=== PATIENT | male | born 1955 | race Asian ===

== ENCOUNTER 2019-01-05 21:39 | Inpatient (IN) | payer OTHER ==
[~2019-01-05] VITALS: Ht 167.6 cm; Wt 70.8 kg
--- NOTE | 2019-01-05 21:47 | NUR ---
"BIB EMS C/O CHRONIC COCCYX UCLER, LLE PAIN. PER PT HE LEFT THE SNF BUT UNABLE TO RECALL THE NAME OF THE FACILITY" PT TO BED 7, PT ON MONITOR, PIV ESTABLISHED, VSS, NAD NOTED, PENDING MD SANTANA
[2019-01-05 22:42] LABS: BASOPHILS # (AUTO) 0.1 /CMM (0.0-0.2); EOSINOPHILS % (AUTO) 3.5 % (0.0-6.0); HEMATOCRIT 29 % (39-51); HEMOGLOBIN 8.8 g/dL (13.5-17.5); LYMPHOCYTES # (AUTO) 2.9 /CMM (0.8-4.8); LYMPHOCYTES % (AUTO) 26.9 % (20.0-44.0); MEAN CORPUSCULAR HGB CONC 31 g/dl (31.0-36.0); MEAN CORPUSCULAR VOLUME 59 fL (80-96); MONOCYTES # (AUTO) 0.7 /CMM (0.1-1.30); MONOCYTES % (AUTO) 6.9 % (2.0-12.0); NEUTROPHILS # (AUTO) 6.7 /CMM (1.8-8.9); NEUTROPHILS % (AUTO) 61.7 % (43.0-81.0); PLATELET COUNT (AUTO) 671 /CMM (150-450); RED BLOOD CELL COUNT(AUTO) 4.86 MIL/uL (4.5-6.0); WHITE BLOOD COUNT (AUTO) 10.8 K/uL (4.3-11.0)
[2019-01-05 23:49] LABS: ALANINE AMINOTRANSFERASE 9 U/L (12-78); ALBUMIN 2.1 g/dL (3.4-5.0); ALKALINE PHOSPHATASE 70 U/L (46-116); ASPARTATE AMINOTRANSFERASE 9 U/L (15-37); BILIRUBIN,DIRECT 0.1 mg/dL (0.0-0.2); BILIRUBIN,TOTAL 0.2 mg/dL (0.2-1.0); CALCIUM, SERUM 8.8 mg/dL (8.5-10.1); CARBON DIOXIDE 24 mmol/L (21-32); CHLORIDE 97 mmol/L (98-107); CREATININE 0.5 mg/dL (0.6-1.3); GLUCOSE 131 mg/dL (74-106); SODIUM SERUM 133 mmol/L (136-145); TOTAL PROTEIN, SERUM 8.7 g/dL (6.4-8.2); UREA NITROGEN, BLOOD 9 mg/dL (7-18)
--- NOTE | 2019-01-06 | NUR ---
PT HAS F/C IN PLACE, DRAINING CLEAR YELLOW URINE, PT REQUESTED TO HAVE BAG CHANGED.
--- NOTE | 2019-01-06 00:13 | NUR ---
URINE COLLECTED AND SENT TO LAB
[2019-01-06 00:32] LABS: APPEARANCE,URINE Cloudy (CLEAR); BILIRUBIN,URINE Negative (NEGATIVE); BLOOD, URINE Negative Ery/uL (NEGATIVE); COLOR,URINE Yellow (YELLOW); KETONES,URINE Negative (NEGATIVE); LEUKOCYTE ESTERASE ,URINE Large (NEGATIVE); NITRITE, URINE Negative (NEGATIVE); PROTEIN,URINE 100 mg/dl (NEGATIVE); UGLUCOSE Negative (NEGATIVE); UROBILINOGEN,URINE 0.2 EU/dL (0.2)
[2019-01-06 00:38] LABS: PH,URINE >9.0 (5.0-8.0)
[2019-01-06] MEDS ORDERED: IV 1/2NS 1000 ML 1,000 ML IV PRN (00:39)
--- NOTE | 2019-01-06 00:40 | NUR ---
BED ASSIGNMENT 323-2
[2019-01-06 00:45] LABS: BACTERIA,URINE Few /HPF (None Seen); RBC,URINE 0-2 /HPF (0-2); SQUAMOUS EPITHELIAL CELL,UR Few /HPF (None Seen); TRIPLE PHOSPHATE CRYSTAL,UR MANY /HPF (None Seen)
--- NOTE | 2019-01-06 00:53 | NUR ---
REPORT GIVEN TO [facility] FLOOD FOR ESTRELLITA PT WILL BE TRANSPORTED TO 3RD FLOOR
[2019-01-06] MEDS ORDERED: PIPERACILLIN /TAZOBACTAM 3.375 G VIAL IV ONE (00:54)
--- NOTE | 2019-01-06 00:54 | NUR ---
RN medsurg notes Received report from ALEENA Heath ER nurse.
[2019-01-06] MEDS ORDERED: HYDROCODONE/APAP 5/325MG 1 EACH TABLET PO PRN (01:00)
[2019-01-06] MEDS ORDERED: ZOLPIDEM TARTRATE 5 MG TABLET PO PRN (01:00)
[2019-01-06] MEDS ORDERED: MAG HYDROX/AL HYDROX/SIMETH 30 ML UDC PO PRN (01:00)
[2019-01-06] MEDS ORDERED: PIPERACILLIN /TAZOBACTAM 3.375 G in IV D5W 50 ML IV ONE (01:00)
[2019-01-06] MEDS ORDERED: MAGNESIUM HYDROXIDE 30 ML UDC PO PRN (01:00)
[2019-01-06] MEDS ORDERED: Z GUARD REMEDY 2 OZ OINT TP PRN (01:00)
[2019-01-06] MEDS ORDERED: ONDANSETRON HCL/PF 4 MG/2 ML VIAL IVP PRN (01:00)
--- NOTE | 2019-01-06 01:30 | NUR ---
RN brandi notes Received Pt from ER nurse. Pt arrived at unit at 0130 am. Pt is 63 male pt with a diagnose of Decubitus Ulcer by Dr. Horton. Pt is alert and oriented x3. Pt is very agitated verbally abusive, combative, and complaining of leaving the unit upon arrival. Pt states " I don't want anyone in my room and I want to go back to ER." Informed and educate Pt that Pt needs a treatment. Pt refused all the assessment. Pt states " You son of bitch." Pt refuses body assessment to be done, stating that he will refuse all medication. Belongings accounted and signed for by Nicole and Halle. All current needs attended to. Bed low, locked, bed alarm on, upper rails up, and call light within reach. Will continue to monitor.
--- NOTE | 2019-01-06 01:40 | NUR ---
RN medsurskyler notes Pt refused VS and body assessment. Will continue to monitor.
[2019-01-06] MEDS ORDERED: VANCOMYCIN 1.5 GM in IV D5W 500ml IV ONE (02:00)
[2019-01-06] MEDS: CEFTRIAXONE 1 G in IV D5W 50 ML IV SCH (06:00)
--- NOTE | 2019-01-06 06:44 | NUR ---
RN medsurg notes Pt is alert and oriented X2, confused, agitated, and combative. Pt is resting in bed comfortably. No SOB. No S/S of distress noted. IV sites at [facility] is clean, intact, patent and SL. Pt refused the treatment, VS, body assessment and medications. Informed and educate Pt about the benefit of treatment and taking meds as ordered. Pt keep refusing. Charge nurse ALEENA Mckeon is aware and informed. Safety precautions is maintained. Bed at low position, brakes locked, side rails upX3, call light is within reach and bed alarm on. Will endorse to morning nursse for ESTRELLITA.
--- NOTE | 2019-01-06 08:00 | NUR ---
MS RN NOTES PATIENT IN BED RESTING NO SOB OR ACUTE DISTRESS NOTED. PATIENT REFUSING ALL CARE. REFUSING VITAL SIGN TO BE CHECK DESPITE EXPLANATION OF RISKS. PATIENT AGGRESSIVE. VERBALLY ABUSIVE. MD MADE AWARE WILL CONTINUE TO MONITOR.
[2019-01-06] MEDS ORDERED: FEE PK DOSING 1 MIN EA MC ONE (08:31)
--- NOTE | 2019-01-06 11:52 | NUR ---
Social service consult requested by Dr. Horton for homelessness. Pt. is a 63 year old male who was admitted to [facility] for infected decubitus ulcer. SW met with pt. bedside along with ALEENA Leonard for translating in Kyrgyz. Pt. is alert and oriented x 3. Per ALEENA Carter and AKASH John, pt. has been verbally abusive and non-compliant with his care here at [facility]. Pt. is and has children, however he has no contact with them. Pt. stated he was going on the bus to go to a hospital and paramedics transported him here. Pt. is homeless. 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 Pt. is wheelchair bound and paraplegic. Pt. has been to several hospitals in the past 12 months. Pt. states he goes from one hospital to another. Pt. informed SW that he will leave AMA if he is not given a private room and an air mattress. SW updated ALEENA Carter and AKASH John with aforementioned information. Pt. is not [facility] appropriate due to having wounds and being paraplegic. SW is available, if needed.
[2019-01-06] MEDS: VANCOMYCIN 1 GM in IV D5W 250 ML IV SCH (14:00)
--- NOTE | 2019-01-06 14:53 | NUR ---
MS RN NOTES PATIENT AGREED TO RECEIVE IV HYDRATION. IV NOTED TO BE INFILTRATED OFFERED TO CHANGE IV SITE. PATIENT REFUSED STATING HE DOES NOT NEED ANY IV MEDICATIONS AND HE IS REFUSING. STATES TO LEAVE HIM ALONE. EMPLANED RISKS AND BENEFITS. PATIENT CONTINUES TO REFUSE.
--- NOTE | 2019-01-06 18:42 | NUR ---
MS RN NOTES PATIENT IN BED RESTING NO SOB OR ACUTE DISTRESS NOTED. PATIENT ALERT, ORIENTED X3 DENIES ANY PAIR OR DISCOMFORT. PATIENT REFUSED ALL CARE DURING SHIFT. HE ALLOWED FOR FLUIDS TO BE CONNECTED BUT WHEN PERIPHERAL WAS FOUND INFILTRATED REFUSED NEW IV TO BE INSERTED. PATIENT REFUSED TURNING AND REPOSITIONING. PATIENT ALSO REFUSED WOUND CARE. DR. SCHMIDT MADE AWARE STATES HE IS AWARE, TO CONTINUE TO TRY. WILL ENDORSE CARE TO PM SHIFT.
--- NOTE | 2019-01-06 19:15 | NUR ---
RN brandi opening notes Received Pt awake and in bed. Pt is awake, verbally abusive, aggresive and non compliant with POC. No S/S of distress noted. Pt refused assessment, repositioning and care. Explained and Informed benefits and risks. Pt keep refusing. Safety precautions is maintained. Bed at low position, brakes locked, side rails upX3 and bed alarm is on. Will continue to monitor.
--- NOTE | 2019-01-06 20:00 | NUR ---
ALEENA paz notes Pt refused VS. Informed and explained the risks and benefits. Pt keep refusing. Will continue to monitor.
--- NOTE | 2019-01-06 23:12 | NUR ---
RN medsurg notes Informed Dr. Horton about Pt is positive for MRSA in right nares. MD ordered MRSA contact isolation and bactroban. Order carried out.
--- NOTE | 2019-01-07 | NUR ---
RN medsurg notes Pt is verbally abusive, and non compliant with care. Pt just had a large bowel movement. Informed Pt that Pt need to get clean and Pt's agree. Informed the charge nurse ALEENA Pritchard about Pt's wound. Charge nurse instructed to cleaned the wound with NS, pat dry, add moistened gauze and covered with abdominal pad. Informed Pt that Pt needs wound care treatment to get better. Pt keep refusing with POC. Charge nurse aware and informed.
--- NOTE | 2019-01-07 00:01 | NUR ---
RN medsurg notes Pt refused to have picture of the wound taken. Will continue to monitor.
[2019-01-07] MEDS: VANCOMYCIN 1 GM in IV D5W 250 ML IV SCH ×2 (02:00→14:00)
--- NOTE | 2019-01-07 02:00 | NUR ---
ALEENA medsurskyler notes Pt refused Vancomycin antibiotics. Offered multiple times. Informed and educate Pt about risk and benefits. Pt keep refusing. Will continue to monitor.
--- NOTE | 2019-01-07 05:42 | NUR ---
ALEENA paz notes Pt refused to have blood drawn by optical laboratory technician. Pt states " I don't want it. Leave me alone. I want to sleep." Informed and educate Pt about risks and benefits. Pt keep refusing. Will continue to monitor.
[2019-01-07] MEDS: CEFTRIAXONE 1 G in IV D5W 50 ML IV SCH (06:00)
--- NOTE | 2019-01-07 06:03 | NUR ---
RN medsurg notes Pt refused Rocephin antibiotic. Made aware risk and benefits. Pt keep refusing. Will continue to monitor.
--- NOTE | 2019-01-07 06:38 | NUR ---
RN medsurg closing notes Pt is alert and oriented x2, confused, and verbally abusive. Pt is resting in bed comfortably. No S/S of distress noted. Pt refused all the care during shift. Pt refused meds. Pt refused VS. Pt refused to have new IV inserted and Pt refused repositioning and turning. Pt refused to have IV fluids. Only allowed to cleaned Pt's wound in the sacrum area but not allowed to have picture taken. Made aware risks and benefits. Charge nurse ALEENA Pritchard is aware and informed. Safety precautions is maintained. Bed at low position, brakes locked, side rails upX3, bed at alarm on and call light is within reach. Will endorse to morning nurse for ESTRELLITA.
--- NOTE | 2019-01-07 06:58 | NUR ---
RN medsurg notes Received phone call from ALEENA Kinghome care aide nurse regarding Pt's wound. Pt's has a decubitus wound. Was able to clean the wound because Pt had a large bowel movement. Unable to measure wound due to Pt's refusing several times and not allowing to have pictures taken. The wound appears to be very large, deep, red and able to see bones. There is no drainage. While cleaning the wound Pt states "keep pushing. I don't feel it." Charge nurse ALEENA Pritchard is aware and looked at the wound. Will endorse to morning nurse ALEENA Mclaughlin.
[2019-01-07] MEDS: MUPIROCIN OINT 2% 22 GM TUBE SCH ×2 (09:00→20:58)
--- NOTE | 2019-01-07 09:36 | NUR ---
WOUND CARE CONSULT: PT PRESENTS WITH MULTIPLE WOUNDS PRESENT ON ADMISSION INCLUDING PENIS WOUND, BILATERAL BUTTOCK ULCERS AND HUGE SACRAL ULCER. DIFFUCULT ASSESSMENT DUE TO PT ANXIOUS, ANGRY AND YELLING. RECOMMEND SURGICAL CONSULT. DR GERMAIN AWARE OF CONSULT REQUEST. RASH NOTED TO PERINEUM, PRESENT ON ADMISSION. FIRST STEP LOW AIRLOSS MATTRESS ORDERED. WILL SEE PRN. DEFER TO SURGICAL TEAM FOR WOUND TREATMENT PLAN. MD IN AGREEMENT WITH PLAN OF CARE. Addendum: 01/07/19 at 0942 by UZAIR NUNEZ WNDNU Amended: Links added.
[2019-01-07] MEDS: DAKINS QUARTER STRENGTH (0.125%) 480 ML BOTTLE TOP SCH (10:00)
--- NOTE | 2019-01-07 10:30 | NUR ---
M/S RN NOTES PATIENT SEEN BY UZAIR FOR WOUND CONSULT, PATIENT VERY ANXIOUS AND NON COMPLIANT IN THE BEGINNING BUT MANAGED TO FOLLOW ORDERS. PATIENT REFUSED FOR WOUND TX ORDERED AND PATIENT WOULD LIKE FOR WOUND TX TO BE DONE LATER.
--- NOTE | 2019-01-07 12:19 | NUR ---
M/S RN NOTES EXPLAINED TO PATIENT THAT HE HAS A DOSE OF VANCOMYCIN IV DUE AT 1400. PATIENT INSISTED THAT HE IS ALLERGIC TO VANCOMYCIN AND DOES NOT WANT TO RECEIVE IT. HE SAID THAT HE SWELLS UP AND TURNS RED. MADE DR. SCHMIDT AWARE OF THE ALLERGY AND TOLD HIM THAT THE PATIENT HAS NOT TAKEN ONE DOSE OF VANCOMYCIN BECAUSE PATIENT HAS BEEN REFUSING.
--- NOTE | 2019-01-07 12:47 | NUR ---
M/S RN NOTES PATIENT SEEN BY REBA BUT BEEN REFUSING TO BE ASSESSED AND DOES NOT WANT ANY WOUND TX TO BE DONE. PHOTOS WERE ALSO REFUSED. EDUCATED PATIENT THE RISKS AND BENEFITS BUT STILL STRONGLY REFUSED.
--- NOTE | 2019-01-07 14:16 | NUR ---
M/S RN NOTES DR. SCHMIDT AWARE OF PATIENT REFUSING VANCOMYCIN IV ALSO AWARE THAT PATIENT STATED THAT HE IS ALLERGIC TO VANCOMYCIN. PER MD HOLD ABX.
--- NOTE | 2019-01-07 14:50 | NUR ---
SW filed APS report for self-neglect. Pt. 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 APS intake ID #[id number]. SW also requested AKASH Roque to request a psychiatric consult for competency since pt. is known to leave AMA from previous hospitals and has threatened to leave AMA from [facility] as well.
--- NOTE | 2019-01-07 16:14 | NUR ---
M/S RN NOTES PATIENTS REFUSING XOCHITL MATTRESS TO BE PLACED, EXPLAINED TO PATIENT THE BENEFITS OF THE MATTRESS FOR HIS MULTIPLE WOUNDS BUT PATIENT STILL REFUSES. PATIENT STATED "IT'S THE WRONG MATTRESS, IT SHOULD BE BIGGER" EXPLAINED TO PATIENT THAT IT INFLATES BUT STILL DOESN'T WANT IT.
[2019-01-07] MEDS: CLOTRIMAZOLE 1% 15 GM TUBE TP SCH (17:00)
[2019-01-07] MEDS: LACTOBACILLUS RHAMNOSUS GG 1 EACH CAP.SPRINK PO SCH (17:00)
--- NOTE | 2019-01-07 17:35 | NUR ---
M/S RN NOTES PATIENT REFUSING TREATMENTS. AWARE. PER MD HOLD VANCOMYCIN IV.
--- NOTE | 2019-01-07 18:45 | NUR ---
M/S RN NOTES PATIENT AWAKE, LYING IN BED. NO RESPIRATORY DISTRESS. PATIENT STATED PAIN TOLERABLE IN INACTIVITY. PATIENT'S NEEDS ATTENDED. BED ON LOWEST LOCKED POSITION, CALL LIGHT WITHIN REACH. WILL ENDORSE TO ONCOMING NURSE.
--- NOTE | 2019-01-07 19:15 | NUR ---
RN NOTES: RECEIVED LYING COMFORTABLY IN BED, ON ROOM AIR, A/O1-2,LITHUANIAN,ABLE TO COMMUNICATE IN [place] WELL, HE IS ASKING FOR LITHUANIAN FOOD, HE HAS SOME FOOD ON THE BED SIDE, WILL HELP HIM EAT LATER. ORIENTED TO UNIT AND STAFF,PER ENDORSEMENT HE REFUSE FOR HIS MEDICATION, HIS VANCO WAS ON HOLD TFO BY , FALL,SAFETY AND ASPIRATION PRECAUTION OBSERVED, BED LOW AND LOCKED, CALL LIGHT WITHIN EASY REACH.NO IV LINE HE REFUSE TO BE INSERTED IN THE MORNING, HE ALSO REFUSE FOR XOCHITL MATRESS TO BE PLACE IN HIS BED, WILL TRY LATER. Addendum: 01/08/19 at 0438 by JOHN CLARK RN ADDED NOTES: EXPLAINED TO PATIENT THAT WE NEED TO RE-INSERT HIS IV CANNULA,HE HAS IV/ATB, HE STRONGLY REFUSED, WILL OFFER/TRY AGAIN LATER.
[2019-01-07 20:00] VITALS: BP 90/60
--- NOTE | 2019-01-07 20:13 | NUR ---
RN NOTES: HE WAS EATING WITH THE HELP OF HIGHWAY TRAFFIC CONTROL TECHNICIAN, GOOD APPETITE, EXPLAINED TO HIM HE WILL BE STARTED ON ZYVOX PER [place] ITS WILL BE A REPLACEMENT FOR HIS VANCO IV PER PHARMACY(JESSICA), HE AGREED.
[2019-01-07] MEDS: LINEZOLID 600 MG TABLET PO SCH (20:58)
--- NOTE | 2019-01-08 03:31 | NUR ---
RN NOTES: CALLS AND NEEDS ATTENDED, AT AROUND 0130 HE ASK AGAIN TO BE FEED, COORDINATOR OF GENETIC SERVICES GAVE HIM FOOD, AFTER THAT HE FALL ASLEEP, FALL,SAFETY,ASPIRATION PRECAUTION OBSERVED, CALL LIGHT KEPT WITHIN EASY REACH.
--- NOTE | 2019-01-08 05:29 | NUR ---
RN NOTES: REFUSED TO BE AWAKEN FOR MORNING CARE, HE REFUSE DRESSING, HE REFUSE TO CHANGE HIS BRIEF, HE REFUSE ALSO FOR IV CANNULATION AND HE REFUSE FOR ROCEPHIN DOSE AT 0600. HE GO BACK TO SLEEP.
[2019-01-08] MEDS: CEFTRIAXONE 1 G in IV D5W 50 ML IV SCH (05:32)
--- NOTE | 2019-01-08 07:20 | NUR ---
MS RN OPENING NOTES RECEIVED PT IN BED, AWAKE, A/O X2-3. TOLERATING RA, WITH NO ACUTE RESPIRATORY DISTRESS NOTED. PT DENIES ANY PAIN OR DISCOMFORT AT THIS TIME. ALSO DENIES CONCERNS OR QUESTIONS AT THIS MOMENT. NO PIV NOTED, PT REFUSED AND DON'T WANT ANY POKING ANYMORE TO NOTIFY MD/GA. PT KEPT COMFORTABLE. PT'S BED IN LOWEST, LOCKED POSITION WITH SRX3. CALL LIGHT KEPT WITHIN REACH. WILL CONTINUE PLAN OF CARE.
[2019-01-08] MEDS: LACTOBACILLUS RHAMNOSUS GG 1 EACH CAP.SPRINK PO SCH ×2 (09:04→17:41)
[2019-01-08] MEDS: LINEZOLID 600 MG TABLET PO SCH ×2 (09:04→21:13)
[2019-01-08] MEDS: CLOTRIMAZOLE 1% 15 GM TUBE TP SCH ×2 (09:05→17:42)
[2019-01-08] MEDS: DAKINS QUARTER STRENGTH (0.125%) 480 ML BOTTLE TOP SCH (09:05)
[2019-01-08] MEDS: MUPIROCIN OINT 2% 22 GM TUBE SCH ×2 (09:06→21:13)
--- NOTE | 2019-01-08 09:15 | NUR ---
MS RN NOTES PT WAS SEEN AND EVALUATED BY DR. SCHMIDT THIS MORNING WITHOUT NEW ORDERS. MD AWARE PT REFUSE TO HAVE IV LINE IN PLACE.
[2019-01-08] MEDS: ACETAMINOPHEN 325 MG TABLET PO PRN (10:14)
--- NOTE | 2019-01-08 10:30 | NUR ---
MS RN NOTES PT ALLOWED RN TO DO WOUND TREATMENT FOR THE SACRUM AND PERIAREA. WILL CONTINUE TO MONITOR.
--- NOTE | 2019-01-08 10:35 | NUR ---
MS RN NOTES PT REFUSED XOCHITL MATTRESS. RISK AND BENEFITS MADE AWARE, INSISTED TO REFUSE.
[2019-01-08 14:13] LABS: BASOPHILS % (AUTO) 0.5 % (0.0-2.0); EOSINOPHILS % (AUTO) 2.5 % (0.0-6.0); HEMATOCRIT 28 % (39-51); HEMOGLOBIN 8.7 g/dL (13.5-17.5); LYMPHOCYTES # (AUTO) 2.9 /CMM (0.8-4.8); LYMPHOCYTES % (AUTO) 27.5 % (20.0-44.0); MEAN CORPUSCULAR HGB CONC 31 g/dl (31.0-36.0); MEAN CORPUSCULAR VOLUME 58 fL (80-96); MONOCYTES # (AUTO) 0.8 /CMM (0.1-1.30); MONOCYTES % (AUTO) 7.9 % (2.0-12.0); NEUTROPHILS # (AUTO) 6.5 /CMM (1.8-8.9); NEUTROPHILS % (AUTO) 61.6 % (43.0-81.0); PLATELET COUNT (AUTO) 554 /CMM (150-450); WHITE BLOOD COUNT (AUTO) 10.5 K/uL (4.3-11.0)
[2019-01-08 14:34] LABS: BILIRUBIN,TOTAL 0.2 mg/dL (0.2-1.0); CALCIUM, SERUM 8.4 mg/dL (8.5-10.1); CREATININE 0.6 mg/dL (0.6-1.3); MAGNESIUM 1.9 mg/dL (1.8-2.4); PHOSPHORUS 3.4 mg/dL (2.5-4.9); POTASSIUM 3.6 mmol/L (3.5-5.1); TOTAL PROTEIN, SERUM 8.3 g/dL (6.4-8.2)
--- NOTE | 2019-01-08 18:36 | NUR ---
MS RN CLOSING NOTES PT IN BED, AWAKE, A/O X2-3. TOLERATING RA, WITH NO ACUTE RESPIRATORY DISTRESS NOTED. PT DENIES ANY PAIN OR DISCOMFORT AT THIS TIME. NO PIV NOTED, MD/GA AWARE. FC IN PLACE WITH CLEAR YELLOW URINE, 1200ML OUTPUT. ALL NEEDS AND CARE ATTENDED. PT KEPT COMFORTABLE. PT'S BED IN LOWEST, LOCKED POSITION WITH SRX3. CALL LIGHT KEPT WITHIN REACH. WILL ENDORSE TO INCOMING NIGHT NURSE FOR ESTRELLITA.
--- NOTE | 2019-01-08 20:00 | NUR ---
MS RN NOTES PT REFUSED TO HAVE VS TAKEN. EXPLAINED TO PT IMPORTANCE OF VS IN HIS POC BUT PT STILL REFUSED. WILL CONTINUE TO MONITOR.
[2019-01-09] MEDS: CEFTRIAXONE 1 G in IV D5W 50 ML IV SCH (06:00)
--- NOTE | 2019-01-09 06:24 | NUR ---
MS RN NOTES PT REFUSED TO HAVE BLOOD DRAWN. EXPLAINED TO PT IMPORTANCE OF BLOOD DRAW IN HER POC BUT PT STILL REFUSED. WILL CONTINUE TO MONITOR.
--- NOTE | 2019-01-09 06:45 | NUR ---
MS RN NOTES AWAKE & RESPONSIVE. NOT IN ANY DISTRESS. NO SOB NOTED. DENIES ANY PAIN OR DISCOMFORT AT THIS TIME. AM CARE DONE. MONITORED ACCORDINGLY. CALL LIGHT WITHIN REACH. BED IN LOWEST POSITION. SR UP X 3 WITH BED ALARM ON FOR SAFETY. WILL ENDORSE TO NEXT SHIFT.
--- NOTE | 2019-01-09 07:26 | NUR ---
MS RN OPENING NOTES RECEIVED PATIENT IN BED, ALERT AND AWAKE. NO SOB OBSERVED. DENIES ANY C/O PAIN NOR DISCOMFORT AT THIS TIME. PATIENT REFUSED V/S, REFUSED TURNING AND REPOSITIONING, BED FOR WOUND MANAGEMENT AND IV ACCESS DESPITE OF EDUCATION AND EXPLANATIONS OF RISKS AND BENEFITS, PATIENT STRONGLY REFUSED. FREQUENT VISUAL CHECK DONE. HOB ELEVATED. F/C INTACT VIA BEDSIDE DRAINING YELLOW COLORED URINE. CALL LIGHT WITHIN REACH. ABLE TO VERBALIZE NEEDS.
[2019-01-09] MEDS: CLOTRIMAZOLE 1% 15 GM TUBE TP SCH ×2 (09:59→16:20)
[2019-01-09] MEDS: DAKINS QUARTER STRENGTH (0.125%) 480 ML BOTTLE TOP SCH (09:59)
[2019-01-09] MEDS: MUPIROCIN OINT 2% 22 GM TUBE SCH ×2 (10:00→20:21)
[2019-01-09] MEDS: LINEZOLID 600 MG TABLET PO SCH ×2 (10:00→20:22)
[2019-01-09] MEDS: LACTOBACILLUS RHAMNOSUS GG 1 EACH CAP.SPRINK PO SCH ×2 (10:00→16:13)
--- NOTE | 2019-01-09 11:00 | NUR ---
MS RN NOTES PATIENT REFUSED SECOND ATTEMPT FOR BLOOD DRAW DESPITE OF EXPLANATION OF RISKS AND BENEFITS.
[2019-01-09] MEDS: ACETAMINOPHEN 325 MG TABLET PO PRN ×2 (15:36→22:53)
[2019-01-09 16:00] VITALS: BP 118/82
--- NOTE | 2019-01-09 16:02 | NUR ---
MS RN NOTES PATIENT REFUSED 3RD BLOOD DRAW DESPITE OF EDUCATION AND EXPLANATIONS OF RISKS AND BENEFITS. PATIENT STRONGLY REFUSED.
--- NOTE | 2019-01-09 18:33 | NUR ---
MS RN CLOSING NOTES PATIENT RESTING COMFORTABLY IN BED. ALERT AND ORIENTED X2. NO SOB OBSERVED. DENIES ANY C/O PAIN NOR DISCOMFORT AT THIS TIME. WOUND CARE DONE ALEX WELL. PATIENT REFUSED TO BE REPOSITIONED AFTER WOUND CARE AND PREFERS TO BE SUPINE. PATIENT REFUSED IV ACCESS AND IVF, DESPITE OF EDUCATION AND EXPLANATIONS OF RISKS AND BENEFITS, PATIENT STRONGLY REFUSED. PATIENT REQUIRES EXTENSIVE ASSISTANCE WITH ADL'S, NON AMBULATORY. FREQUENT VISUAL CHECK DONE. HOB ELEVATED. F/C INTACT VIA BEDSIDE DRAINING YELLOW COLORED URINE. CALL LIGHT WITHIN REACH. ABLE TO VERBALIZE NEEDS.
--- NOTE | 2019-01-09 19:20 | NUR ---
MS RN OPENING NOTES Received patient A/O x2, awake on high Dennis's position on bed. No IV access present - patient has been refusing. No complaints of pain made at this time. Patient refused to lower his bed and to keep the bedside table closer to his bed. With FC indwelling well with clear yellow urine output noted. Kept on bed comfortable. Call light within easy reach. Will continue to monitor accordingly.
--- NOTE | 2019-01-09 20:00 | NUR ---
MS RN NOTES Patient refused V/S check at this time. On RA, no s/sx of SOB/respiratory distress noted.
--- NOTE | 2019-01-09 22:00 | NUR ---
MS RN NOTES Patient refused wound treatment at this time. Education provided on wound treatment, patient refused.
--- NOTE | 2019-01-09 23:03 | NUR ---
MS RN NOTES Patient asked that he is ready to take his antibiotic at this time with tylenol. Administered as ordered.
--- NOTE | 2019-01-10 00:30 | NUR ---
MS RN NOTES Patient refused to be cleaned. Patient is verbally abusive to the staff. Remained non compliant, throw away the medication.
[2019-01-10] MEDS: CEFTRIAXONE 1 G in IV D5W 50 ML IV SCH (05:18)
--- NOTE | 2019-01-10 06:40 | NUR ---
MS RN CLOSING NOTES Patient asleep on bed, on RA, no SOB/respiratory distress noted. Patient complied cleaning with the CN. Kept on bed clean, dry and comfortable. Call light within easy reach. Endorsed to the next shift.
--- NOTE | 2019-01-10 07:30 | NUR ---
m/s ornamental brick installer: initial assessment received pt in bed, easily irritable and gets upset easily. pt refused vital signs and assessment. reality orientation provided prn. will continue to monitor.
--- NOTE | 2019-01-10 08:30 | NUR ---
m/s legal cashier: notes pt still refused to have vital sign taken and still refuses am assessment. breakfast and am meds offered, but pt refused, stated, "maybe later." instructed to call for assistance.
[2019-01-10] MEDS: CLOTRIMAZOLE 1% 15 GM TUBE TP SCH ×2 (09:00→17:00)
[2019-01-10] MEDS: DAKINS QUARTER STRENGTH (0.125%) 480 ML BOTTLE TOP SCH (09:00)
[2019-01-10] MEDS: MUPIROCIN OINT 2% 22 GM TUBE SCH ×2 (09:00→21:08)
[2019-01-10] MEDS: LINEZOLID 600 MG TABLET PO SCH ×2 (09:16→20:48)
[2019-01-10] MEDS: LACTOBACILLUS RHAMNOSUS GG 1 EACH CAP.SPRINK PO SCH ×2 (09:16→17:00)
[2019-01-10] MEDS: ACETAMINOPHEN 325 MG TABLET PO PRN (09:16)
--- NOTE | 2019-01-10 10:00 | NUR ---
m/s assistant elementary teacher: notes pt still refuses kci mattress and still wants his bed up. safety teaching provided, but pt refuses and started cursing at staff when bed was put down for safety.
--- NOTE | 2019-01-10 10:22 | NUR ---
m/s registered safety engineer: md visit seen by dr. alfonso with verbal order to brian'cassie powell ivpb due to refusal of iv medication and iv insertion. order carried out and acknowledged. md aware that pt still refusing labs, vital signs, am care and tx; also per md pt has been refusing debridement on his sacral wound.
--- NOTE | 2019-01-10 12:00 | NUR ---
m/s title checker: notes lunch served, but pt refused to eat at this time. pt asked for wound care.
--- NOTE | 2019-01-10 14:30 | NUR ---
m/s clement: notes pt asked to have his dressing change and leida (martha) here to assess wound. pt is dictating on what to do with his wound and refusing his wound assessed by leida. pt yelling and screaming by cursing out at staff. noted stool coming out of the wound, kept clean and dry. able to take photos on one side only. pt continued to cursed at leida (p.a.) and let primary nurse continued to do his wound tx. spent half an hour in room, just to calm pt and encouraged to verbalized feelings. emotional support rendered. will continue to monitor. Addendum: 01/10/19 at 1504 by JUAN PABLO HERNANDEZ LVN above time is wrong; correct time would be at 1200.
--- NOTE | 2019-01-10 14:50 | NUR ---
m/s laboratory asst: notes in bed with eyes close. no s/s of discomfort. call light within reach. will monitor.
--- NOTE | 2019-01-10 15:45 | NUR ---
m/s orthopedic tech: notes pt awaken and request to heat his lunch, informed pt that we cannot bring his lunch out due to isolation, but yelled at me and started cursing. offered sandwich, but pt refused. will continue to monitor.
--- NOTE | 2019-01-10 16:30 | NUR ---
m/s computer scientist: notes pt still refuses kci mattress and still refuses his bed to be lowered for safety despite teaching and education provided on safety. pt continued to be verbally abusive to staff and dictating on every care that was provided to him. will continue to monitor.
--- NOTE | 2019-01-10 17:40 | NUR ---
m/s engineering recruiter: notes dr. alfonso notified and discussed with him re: stool noted coming out from the wound. pt still non-compliant with wound debridement and assessment from the plastic surgeon group. per md someone already told him about this and pt remains non-compliant with assessment as stated. will continue to monitor.
--- NOTE | 2019-01-10 18:30 | NUR ---
m/s shoder filler: notes in bed with eyes close. needs attended. in no apparent distress noted. call light within reach. will continue to monitor.
--- NOTE | 2019-01-10 19:00 | NUR ---
m/s organ assembler: notes report given to sandy (rn) for continuity of care.
--- NOTE | 2019-01-10 19:30 | NUR ---
MS RN OPENING NOTES RECEIVED PATIENT FROM MORNING SHIFT, ALERT AND ORIENTED X 4. VERBALLY RESPONSIVE AND ABLE TO FOLLOW DIRECTIONS. BREATHING REGULAR AND UNLABORED ON ROOM AIR. NO IV LINE NOTED. REFUSED SKIN ASSESSMENT, RISK AND BENEFITS EXPLAINED. COMPLAINED OF 5/10 SACROCOCCYX PAIN THAT AGGRAVATES WHEN MOVING, OFFERED PAIN MEDICATION BUT REFUSED SAID JUST HELP HIM OUT TO EAT. ASSISTED ON FEEDING. SO CATH INTACT AND PATENT, DRAINING CLEAR YELLOW URINE WITH MODERATE AMOUNT ON URINARY BAG. WILL CONTINUE TO MONITOR.
[2019-01-10 21:12] VITALS: BP 116/67
--- NOTE | 2019-01-10 22:57 | NUR ---
MS RN NOTES PATIENT REFUSED BLOOD DRAW FOR LAB, RISK AND BENEFITS EXPLAINED. WILL CONTINUE TO MONITOR.
[2019-01-11] MEDS: ACETAMINOPHEN 325 MG TABLET PO PRN ×2 (04:39→17:26)
--- NOTE | 2019-01-11 05:44 | NUR ---
MS RN NOTES REFUSED TO BE CHANGED, REPOSITIONED AND WOUND TREATMENTS. ALSO REFUSED AM LABS. RISK AND BENEFITS EXPLAINED. WILL CONTINUE TO MONITOR.
--- NOTE | 2019-01-11 06:40 | NUR ---
MS RN CLOSING NOTES PATIENT IN BED ALERT AND ORIENTED X 4. VERBALLY RESPONSIVE. BREATHING REGULAR AND UNLABORED ON ROOM AIR. NO IV LINE NOTED. REFUSED WOUND TREATMENT, AM LABS, CHANGE AND REPOSITIONING, RISK AND BENEFITS EXPLAINED. SO CATH INTACT AND PATENT, DRAINING CLEAR YELLOW URINE WITH MODERATE AMOUNT ON URINARY BAG. BED LOW AND LOCKED ON SEMI FOWLERS POSITION. WILL ENDORSE TO MORNING SHIFT FOR ESTRELLITA.
--- NOTE | 2019-01-11 08:00 | NUR ---
m/s scenic artist: initial assessment received pt in bed awake, a/ox3, easily irritable, manipulative, and verbally abusive. pt refused vital signs. pt c/o that nobody change his wound dressing last night. pt refused all care last night. pt also very argumentative with staff. emotional support rendered. will continue to monitor.
[2019-01-11] MEDS: DAKINS QUARTER STRENGTH (0.125%) 480 ML BOTTLE TOP SCH (09:00)
[2019-01-11] MEDS: CLOTRIMAZOLE 1% 15 GM TUBE TP SCH ×2 (09:00→17:00)
[2019-01-11] MEDS: MUPIROCIN OINT 2% 22 GM TUBE SCH ×2 (09:00→20:55)
--- NOTE | 2019-01-11 10:00 | NUR ---
m/s industrial arts teacher: notes pt refused to be turned and repositioned, just wants his head up and bed all the way up. pt refusing to listen to staff when safety teaching provided. pt wants his way only and refused all teaching from staff. instructed to call for assistance. will monitor.
[2019-01-11] MEDS: LINEZOLID 600 MG TABLET PO SCH ×2 (10:05→20:54)
[2019-01-11] MEDS: LACTOBACILLUS RHAMNOSUS GG 1 EACH CAP.SPRINK PO SCH ×2 (10:05→17:00)
--- NOTE | 2019-01-11 12:00 | NUR ---
m/s roof promenade tile setter: notes pt started throwing temper tantrums to sane rn ranging from screaming, yelling, and cursing. pt is hard to please. pt remains negative toward staff despite emotional support provided. pt still non-compliant with bed being low, still wants it up. instructed to call for assistance. will continue to monitor.
--- NOTE | 2019-01-11 14:00 | NUR ---
m/s truck loader: notes pt refusing help with assigned machine sewer and wants primary to assist him, pt is verbally abusive to assigned machine sewer. assisted with another machine sewer, but pt still verbally abusive. will continue to monitor. cn aware.
--- NOTE | 2019-01-11 15:45 | NUR ---
m/s substation inspector: notes started at 1445 in room doing his wound care. pt dictating on how to do his wound step by step. pt gets easily irritated when needs not met. assisted by assistant surveyor and pt continued to dictate on wound tx. pt won't us allow to do his tx order instead wants his way. in an hour spent in room. shivam mortensen (hospitalist) and leida (plastic surgeon, p.a.) spoke to pt re: wound debridement, but pt refused to listen and throw them out of the room. pt very rude and abusive to staff. all needs attended. call light within reach. instructed to call for assistance.
--- NOTE | 2019-01-11 18:30 | NUR ---
m/s housing inspector: notes pt continued to verbally abusive to staff when pt needed help with his meal. pt refused help with assigned gang drill operator. another staff assisted pt with his meal. needs attended. instructed to call for assistance. will continue to monitor.
--- NOTE | 2019-01-11 19:00 | NUR ---
MS RN NOTE RECEIVED PT IN STABLE CONDITION, A/O X4, CURRENTLY IN BED WATCHING TV. NO SIGNS OF SOB OR DISTRESS, NO C/O PAIN. PT CURRENTLY HAS NO IV, MD AWARE. SO IN PLACE WITH ADEQUATE URINE DRAINING. ALL CURRENT NEEDS ATTENDED TO. BED LOW, LOCKED, UPPER RAILS UP, ISOLATION PRECAUTIONS IN PLACE, AND CALL LIGHT WITHIN REACH. WILL CONT. TO MONITOR.
--- NOTE | 2019-01-11 19:05 | NUR ---
m/s human resources representative: notes report given to melissa (rn) for continuity of care.
[2019-01-11 20:00] VITALS: BP 109/70
--- NOTE | 2019-01-11 23:00 | NUR ---
MS RN NOTE PT REFUSED PM BLOOD DRAW.
[2019-01-12 04:08] VITALS: BP 109/70
--- NOTE | 2019-01-12 05:30 | NUR ---
MS RN NOTE PT REMAINS IN STABLE CONDITION, A/O X4, CURRENTLY IN BED, RESTING. NO SIGNS OF SOB OR DISTRESS, NO C/O PAIN. PT CURRENTLY HAS NO IV, MD AWARE. SO IN PLACE WITH ADEQUATE URINE DRAINING. ALL CURRENT NEEDS ATTENDED TO. BED LOW, LOCKED, UPPER RAILS UP, ISOLATION PRECAUTIONS IN PLACE, AND CALL LIGHT WITHIN REACH. WILL CONT. TO MONITOR AND ENDORSE TO NEXT SHIFT FOR ESTRELLITA.
--- NOTE | 2019-01-12 07:49 | NUR ---
RN MS OPENING NOTES Patient received on room air, no sob noted, denies pain at this time, and is a/o x3. Jackson remains in place and is draining, patient refuses IV and labs this am. Bed at the lowest setting, call light within reach, side rails up x2.
[2019-01-12] MEDS: LINEZOLID 600 MG TABLET PO SCH ×2 (09:49→20:06)
[2019-01-12] MEDS: LACTOBACILLUS RHAMNOSUS GG 1 EACH CAP.SPRINK PO SCH ×2 (09:49→16:24)
[2019-01-12] MEDS: DAKINS QUARTER STRENGTH (0.125%) 480 ML BOTTLE TOP SCH (09:50)
[2019-01-12] MEDS: CLOTRIMAZOLE 1% 15 GM TUBE TP SCH ×2 (09:50→16:25)
--- NOTE | 2019-01-12 14:37 | NUR ---
RN NOTES Patient refused wound debridement with leida at this time. Patient requesting for a medical doctor to do the procedure. Patient did sign the consent earlier with Horacio from [facility] translating.
--- NOTE | 2019-01-12 18:48 | NUR ---
RN MS CLOSING NOTES Patient remains on room air, no sob noted, patient denies pain at this time, a/o x3. Patient refuses IV line, wound debridement, and wound dressing change today. Jackson remains patent at this time and is draining 1600. Psych consult pending at this time. Patient requested the bed to be elevated a little bit, explained to him the safety precautions and the benefits of keeping the bed at the lowest as safest, he still persists to keep it a little bit higher. call light within reach, side rails up x2. Will give report to NOC RN for ESTRELLITA bedside.
--- NOTE | 2019-01-12 19:10 | NUR ---
MS RN NOTE RECEIVED PT IN STABLE CONDITION A/O X3. CURRENTLY IN BED, WATCHING TV. NO SIGNS OF SOB OR DISTRESS, NO C/O PAIN. PT NOTED WITHOUT IV ACCESS, MD AWARE. SO PATENT AND IN PLACE WITH ADEQUATE URINE DRAINING. ALL CURRENT NEEDS ATTENDED TO. BED LOW, LOCKED, CALL LIGHT WITHIN REACH. WILL CONT. TO MONITOR.
--- NOTE | 2019-01-12 20:27 | NUR ---
MS RN NOTE PT REFUSING 2000 VITALS. WILL CONTINUE TO MONITOR.
[2019-01-13] MEDS: ACETAMINOPHEN 325 MG TABLET PO PRN (04:17)
--- NOTE | 2019-01-13 06:37 | NUR ---
MS RN NOTE PT REMAINS IN STABLE CONDITION A/O X3. CURRENTLY IN BED, RESTING. NO SIGNS OF SOB OR DISTRESS, NO C/O PAIN. PT NOTED WITHOUT IV ACCESS, MD AWARE. SO PATENT AND IN PLACE WITH 1750 ML OUTPUT. WOUND DRESSING CHANGED ORDERED. ALL CURRENT NEEDS ATTENDED TO. BED LOW, LOCKED, CALL LIGHT WITHIN REACH. WILL CONT. TO MONITOR AND ENDORSE TO NEXT SHIFT FOR ESTRELLITA.
--- NOTE | 2019-01-13 07:35 | NUR ---
MS RN OPENING NOTES RECEIVED PT AWAKE IN BED IN NO ACUTE SIGNS OF DISTRESS. A/O X3. VERBALLY RESPONSIVE, DENIES PAIN OR ANY DISCOMFORTS AT THIS TIME. ON ROOM AIR, BREATHING EVEN AND UNLABORED. REPORTED THAT PT REFUSED IV ACCESS AND MD IS AWARE. SO CATHETER IN PLACE AND ACTIVELY DRAINING CLEAR YELLOW URINE OUTPUT. SAFETY MEASURES IN PLACE. BED IN LOW LOCKED WITH UPPER RAILS UP. CALL LIGHT WITHIN REACH. WILL CONTINUE TO MONITOR ACCORDINGLY.
[2019-01-13] MEDS: CLOTRIMAZOLE 1% 15 GM TUBE TP SCH ×2 (09:00→16:42)
[2019-01-13] MEDS: LACTOBACILLUS RHAMNOSUS GG 1 EACH CAP.SPRINK PO SCH ×2 (09:00→16:42)
[2019-01-13] MEDS: DAKINS QUARTER STRENGTH (0.125%) 480 ML BOTTLE TOP SCH (09:00)
[2019-01-13] MEDS: LINEZOLID 600 MG TABLET PO SCH ×2 (09:24→20:59)
--- NOTE | 2019-01-13 10:49 | NUR ---
JENNIFER received a voicemail message from Roz RODRIGUEZ from [facility] inquiring if pt. is still at [facility]. JENNIFER called her back and informed her that pt. is at [facility] and to call back.
--- NOTE | 2019-01-13 10:52 | NUR ---
RN NOTES PATIENT COMPLAINED THAT HE'S SO CATHETER IS LEAKING. MD ROMERO MADE AWARE WITH ORDER TO CHANGE SO CATHETER. NEW SO CATH FR#16 INSERTED WITHOUT PROBLEM AND NOTED WITH YELLOW CLOUDY URINE OUTPUT. WILL CONTINUE TO MONITOR.
--- NOTE | 2019-01-13 16:28 | NUR ---
RN NOTES PATIENT SEEN AND EVALUATED BY SOFT WORK CIGAR MACHINE OPERATOR SD OF ADULT PROTECTIVE SERVICES . PT REFUSED ANY RESOURCES OFFERED TO HIM. WILL CONTINUE TO MONITOR. .
[2019-01-13] MEDS: HALOPERIDOL LACTATE 10 MG/5 ML UDC PO SCH (18:00)
--- NOTE | 2019-01-13 18:15 | NUR ---
RN NOTES DR WAY CAME AND EVALUATED PT WITH ORDER TO GIVE HALDOL 1MG PO TID. PT REFUSED TO TAKE MEDICATION AND STATED " I DON'T CARE". WILL CONTINUE TO MONITOR.
--- NOTE | 2019-01-13 18:44 | NUR ---
MS RN CLOSING NOTES PT AWAKE IN BED WATCHING TV AT THIS TIME. HOB ELEVATED. A/O X3-4. ABLE TO MAKE NEEDS KNOWN. PT NOTED WITH CURSING AND VERBALLY ABUSIVE DURING THE DAY. QUIET AND CALM AT THIS TIME. ON ROOM AIR, TOLERATING WELL WITH NO SOB NOTED. PT REFUSED IV ACCESS AND MD IS AWARE. SO CATHETER IN PLACE AND ACTIVELY DRAINING CLEAR YELLOW URINE OUTPUT, SO CARE DONE. ALL NEEDS AND CARE ATTENDED WELL. SAFETY MEASURES KEPT IN PLACE. BED IN LOW LOCKED POSITION WITH UPPER RAILS UP. CALL LIGHT WITHIN REACH. WILL ENDORSE TO BUSINESS ADMINISTRATION INSTRUCTOR NURSE FOR ESTRELLITA.
--- NOTE | 2019-01-13 19:30 | NUR ---
MS/RN OPENING NOTES PT RECEIVED AWAKE, A/OX3. ON ROOM AIR, BREATHING EVEN AND UNLABORED. DENIES SOB AND PAIN AT THIS TIME. PER DAY SHIFT RN, VERBALLY ABUSIVE DURING SHIFT, HOWEVER IS QUIET AND CALM AT THIS TIME. SO IN PLACE AND DRAINING TO GRAVITY. NO IV ACCESS PT REFUSED. BED IN HIGH POSITION DESPITE EDUCATION OF RISKS OF HIGH POSITION AND ENCOURAGED TO PLACE BED IN LOWEST POSITION HOWEVER PT REFUSED. HOB ELEVATED AND BILATERAL UPPER SIDE RAILS IN PLACE. WILL CONTINUE TO MONITOR
[2019-01-13 20:00] VITALS: BP 113/67
--- NOTE | 2019-01-13 22:26 | NUR ---
MS/RN NOTES PT REFUSED BLOOD DRAW DESPITE EDUCATION X3.
--- NOTE | 2019-01-14 06:55 | NUR ---
MS/RN CLOSING NOTES PT WITH EYES CLOSED. RESPONSIVE TO NAME. A/OX3. ON ROOM AIR, BREATHING EVEN AND UNLABORED. VERBALLY ABUSIVE TOWARDS STAFF. YELLS AND CURSING AT STAFF DURING SHIFT. NON COMPLIANT WITH CARE. REFUSING WOUND CARE, TURNING/REPOSITIONING. NO IV ACCESS PT REFUSES, MD AWARE. SO IN PLACE AND DRAINING TO GRAVITY. NO SIGNIFICANT CHANGES OVERNIGHT. BED STILL IN HIGH POSITION DESPITE EDUCATION ON SAFETY AND RISKS OF HAVING BED IN HIGH POSITION HOWEVER PT STILL REFUSING. HOB ELEVATED AND BILAT. UPPER SIDE RAILS IN PLACE. ENDORSED TO DAY SHIFT RN ESTRELLITA.
--- NOTE | 2019-01-14 08:45 | NUR ---
wide awake when first seen, no complaint offered. " needs to get out of here today, regardless, been here too long". explained why he needs hospitalization, " dont want to hear any explanation, just get me out of here".
[2019-01-14] MEDS: HALOPERIDOL LACTATE 10 MG/5 ML UDC PO SCH ×3 (08:57→16:08)
[2019-01-14] MEDS: LACTOBACILLUS RHAMNOSUS GG 1 EACH CAP.SPRINK PO SCH ×2 (08:57→16:08)
[2019-01-14] MEDS: LINEZOLID 600 MG TABLET PO SCH ×2 (08:57→21:08)
[2019-01-14] MEDS: DAKINS QUARTER STRENGTH (0.125%) 480 ML BOTTLE TOP SCH (09:00)
[2019-01-14] MEDS: CLOTRIMAZOLE 1% 15 GM TUBE TP SCH ×2 (09:07→16:16)
--- NOTE | 2019-01-14 09:09 | NUR ---
total care, agreed to take all po meds now, including Haldol. Insists private room, if not " want to sign AMA , and go to another hospital where i could have what I requested" asked to turn so gluteal area dressing can be changed, refused
--- NOTE | 2019-01-14 13:35 | NUR ---
MS RN NOTES-- RECEIVED REPORT FROM REGISTRY NURSE. PT IS A/O X3, AFEBRILE. RESPIRATIONS ARE EVEN AND UNLABORED, NOT IN ANY ACUTE DISTRESS NOTED. DENIES ANY SOB, N/V. NO IV ACCESS, SAFETY MEASURES ARE IN PLACE. INSTRUCTED PT TO USE CALL LIGHT WHEN ASSISTANCE IS NEEDED, CALL LIGHT IS LEFT WITHIN REACH. WILL MONITOR THROUGHOUT SHIFT FOR CONTINUITY OF CARE.
[2019-01-14] MEDS: ACETAMINOPHEN 325 MG TABLET PO PRN ×2 (16:08→22:23)
[2019-01-14 16:09] VITALS: BP 108/61
--- NOTE | 2019-01-14 17:24 | NUR ---
MS RN NOTES-- DRESSING CHANGE DONE, PT TOELRATED WELL.
--- NOTE | 2019-01-14 18:33 | NUR ---
MS RN CLOSING NOTES ALL DUE MEDS GIVEN, NEEDS MET AND RENDERED. PT IS A/O X3, AFEBRILE. RESPIRATIONS ARE EVEN AND UNLABORED, NOT IN ANY ACUTE DISTRESS NOTED. PT DENIES ANY PAIN AT T HIS TIME, NO C/O SOB, N/V AT THIS TIME. NO IV ACCESS. SAFETY MEASURES ARE IN PLACE. REMINDED PT TO USE CALL LIGHT WHEN ASSISTANCE IS NEEDED, CALL LIGHT IS LEFT WITHIN REACH.
--- NOTE | 2019-01-14 19:20 | NUR ---
MS RN PM OPENING NOTE BEDSIDE REPORT RECIEVED FROM PARVIN FLOOD. PT IS A/O X3. RESPIRATIONS ARE EVEN AND UNLABORED IN NO APPARENT DISTRESS. PATIENT HAS NO IV ACCESS MD AWARE PER REPORT. SAFETY MEASURES ARE IN PLACE BED DOWN LOCKED CALL LIGHT IN REACH. WILL CONT TO MONITOR.
[2019-01-14 20:00] VITALS: BP 126/89
[2019-01-14 21:30] VITALS: BP 126/89
--- NOTE | 2019-01-14 21:30 | NUR ---
DRESSING CHANGED, REFUSED TO HAVE IT PERFORMED PER ORDERS. PATIENT HAD SMALL BM. DRESSING CHANGED. PATIENT REFUSING DRESSING CHANGE MD HAS ORDERED IT. DRESSING CHANGED TO PATIENTS LIKING OF XEROFORM WITH LIGHT PACKING PER PATIENT REQUEST AFTER INFORMING PATIENT THAT SUCH A DRESSING IS NOT THE RECOMMENDED TREATMENT. Addendum: 01/15/19 at 0050 by JERILYN CAMPO RN PATIENT STATES , "NO I WANT IT DOEN [address]. YOU DON'T LISTEN TO ME. DO IT THE WAY I WANT."
--- NOTE | 2019-01-14 22:23 | NUR ---
tyeleol administered for patietn c/o pain 06/20. per patient request
--- NOTE | 2019-01-15 07:30 | NUR ---
MS RN OPENING NOTE PATIENT IN BED RESTING COMFORTABLY. PATIENT BREATHING IS EVEN AND UNLABORED. PATIENT IN NO ACUTE DISTRESS. NO SOB NOTED. PATIENT WITH NO IV ACCESS NOTED. SAFETY PRECAUTIONS IN PLACE. HOB IS ELEVATED. PATIENT BED IS LOCKED AND IN LOWEST POSITION. CALL LIGHT WITHIN REACH. WILL CONTINUE TO MONITOR.
--- NOTE | 2019-01-15 08:00 | NUR ---
MS RN NOTE PATIENT REFUSED VITAL SIGNS AM WITH DEPUTY PROBATION OFFICER AND MYSELF. PATIENT STATES " DONT TOUCH ME WITH THAT BP CUFF, I DONT WANT VITAL SIGNS". EXPLAINED RISKS VS BENEFITS 3X, PATIENT CONTINUED TO REFUSE.
[2019-01-15] MEDS: DAKINS QUARTER STRENGTH (0.125%) 480 ML BOTTLE TOP SCH (08:11)
[2019-01-15] MEDS: LINEZOLID 600 MG TABLET PO SCH ×2 (08:11→21:10)
[2019-01-15] MEDS: LACTOBACILLUS RHAMNOSUS GG 1 EACH CAP.SPRINK PO SCH ×2 (08:11→17:00)
[2019-01-15] MEDS: HALOPERIDOL LACTATE 10 MG/5 ML UDC PO SCH ×3 (08:26→17:00)
--- NOTE | 2019-01-15 08:45 | NUR ---
MS RN NOTE PATIENT ALLOWED FOR WOUND CARE TREATMENT TO BE PROVIDED ORDERED. PATIENT REFUSED TO HAVE Z GUARD APPLIED TO PERINEAL AREA. PATIENT REFUSED AM 0900 HALDOL. EXPLAINED VS BENEFITS 3X, PATIENT CONTINUED TO REFUSE.
[2019-01-15] MEDS: CLOTRIMAZOLE 1% 15 GM TUBE TP SCH ×2 (09:24→17:25)
--- NOTE | 2019-01-15 10:00 | NUR ---
MS RN NOTES PATIENT VERBALLY ABUSIVE TO SOCIAL RESEARCH ASSISTANT, SOCIAL RESEARCH ASSISTANT TRYING TO GET VITAL SIGNS. PATIENT STATES " GET OUT OF HERE, I DONT LIKE YOU. YOU ARE DOING EVERYTHING WRONG." PATIENT IN NO ACUTE DISTRESS. WILL CONTINUE TO MONITOR.
--- NOTE | 2019-01-15 13:10 | NUR ---
MS RN NOTE PATIENT REFUSES TO HAVE HALDOL PM 1300. PATIENT RAISES VOICE AND STATES " I DONT WANT THAT, PLEASE GET THAT AWAY FROM ME." EXPLAINED RISKS VS BENEFITS 3X. PATIENT CONTINUES REFUSAL.
--- NOTE | 2019-01-15 17:00 | NUR ---
MS RN NOTE PATIENT WAS CLEANED AND PROVIDED WOUND CARE AFTER BOWEL MOVEMENT. PATIENT BECAME VERBALLY ABUSIVE WHILE THE INSPECTOR PAWNSHOP DETAIL AND I WERE TRYING TO CLEAN PATIENT. PATIENT STATED TO THE INSPECTOR PAWNSHOP DETAIL " YOUR DUMB, WHAT ARE YOU EVEN SAYING TO ME, STOP TALKING TO ME". WE ATTENDED TO PATIENT NEEDS AND CONCERNS. NEEDS AND CONCERNS WERE ADDRESSED. PATIENT REFUSES TO HAVE PILLOWS OFFLOADING LOWER LEGS AND HEELS.
[2019-01-15] MEDS: ACETAMINOPHEN 325 MG TABLET PO PRN (17:31)
--- NOTE | 2019-01-15 17:45 | NUR ---
MS RN NOTE PATIENT REFUSED HALDOL PM 1300, 1700 MEDICATIONS AND LACTOBACILLUS 1700. PATIENT STATES "HALDOL MAKES ME SLEEPY, I DONT WANT IT AND LACTOBACILLUS IS NOT AN ANTIBIOTIC I DONT WANT THAT EITHER". EXPLAINED RISKS VS BENEFITS 3X, PATIENT CONTINUES TO REFUSE.
--- NOTE | 2019-01-15 18:36 | NUR ---
MS RN CLOSING NOTE PATIENT IN BED RESTING COMFORTABLY. PATIENT BREATHING IS EVEN AND UNLABORED. PATIENT IN NO ACUTE DISTRESS. NO SOB NOTED. PERFORMED WOUND CARE ORDERED FOR PATIENT. PATIENT HAS BEEN VERBALLY ABUSIVE TOWARDS HEALTHCARE STAFF PERIODICALLY THROUGHOUT SHIFT. PATIENT HOB IS ELEVATED. PATIENT BED IS SLIGHTLY HIGHER THAN THE LOWEST POSITION. EDUCATED PATIENT TO KEEP IN LOWEST POSITION. PATIENT REFUSED AND YELLED I DONT WANT YOU TO TOUCH MY BED, LEAVE IT ALONE, I LIKE IT LIKE THIS". EDUCATED PATIENT ON SAFETY RISKS AND BENEFITS 3X. PATIENT CONTINUED TO REFUSE. PATIENT WITH NO IV ACCESS PATIENT REFUSED. PATIENT BED IS LOCKED. SO CATHETER HANGING TO GRAVITY DRAINING CLEAR YELLOW URINE. CALL LIGHT WITHIN REACH. WILL ENDORSE CARE TO PM SHIFT FOR ESTRELLITA.
--- NOTE | 2019-01-15 19:33 | NUR ---
MS RN OPENING NOTES RECEIVED PATIENT FROM MORNING SHIFT, ALERT AND ORIENTED X 4 VERBALLY RESPONSIVE. BREATHING REGULAR AND UNLABORED ON ROOM AIR. REFUSED IV INSERTION. REFUSED BODY ASSESSMENTS VERBALIZED THAT HE'S IN PAIN, OFFERED PAIN MEDICATION BUT DECLINED, HE SAID HE WANTS TO REST. BED LOW AND LOCKED ON SEMI FOWLERS POSITION. WILL CONTINUE TO MONITOR.
[2019-01-15 20:00] VITALS: BP 88/60
--- NOTE | 2019-01-16 04:45 | NUR ---
MS RN NOTES PATIENT REFUSED CLEANING, LINEN CHANGE, REPOSITIONING AND WOUND TREATMENTS. RISK AND BENEFITS EXPLAINED. WILL OFFER AGAIN AFTER 1HR.
--- NOTE | 2019-01-16 05:45 | NUR ---
MS RN NOTES OFFERED AGAIN TO BE CLEANED, REPOSITION AND WOUND TREATMENT, STILL VERBALIZED REFUSAL SAID HE WANTS TO SLEEP. WILL ENDORSE TO MORNING SHIFT.
--- NOTE | 2019-01-16 06:37 | NUR ---
MS RN CLOSING NOTES PATIENT IN BED ALERT AND ORIENTED X 4 VERBALLY RESPONSIVE. BREATHING REGULAR AND UNLABORED ON ROOM AIR. NO IV ACCESS. SO CATH INTACT AND PATENT, DRAINING CLEAR YELLOW URINE WITH 1250cc OUTPUT ON THE SHIFT. ON PO ATB WITH NO ADVERSE REACTIONS NOTED. REFUSED TO BE CLEANED, LINEN CHANGE, REPOSITIONING AND WOUND TREATMENTS. RISK AND BENEFITS EXPLAINED BUT STILL VERBALIZED REFUSAL. BED LOW AND LOCKED ON SEMI FOWLERS POSITION. WILL ENDORSE TO MORNING SHIFT FOR ESTRELLITA.
--- NOTE | 2019-01-16 07:40 | NUR ---
MS RN NOTES PATIENT RECEIVED RESTING INSIDE ROOM. AWAKE, ALERT AND ORIENTED, VERBALLY RESPONSIVE AND RESPONDS TO VERBAL AND TACTILE STIMULI. NO ACUTE DISTRESS. DENIES ANY PAIN OR DISCOMFORT. SO CATH IN PLACE WITH YELLOW URINE OUTPUT NOTED ON COLLECTING BAG. MAINTAINED ISOLATION PRECAUTION. WILL CONTINUE TO MONITOR. BED LOCKED AND IN LOW POSITION. BILATERAL UPPER SIDE RAILS UP AND LOCKED. CALL LIGHT WITHIN EASY REACH
--- NOTE | 2019-01-16 08:14 | NUR ---
MS RN NOTES PATIENT REFUSED AM VITAL SIGNS TO BE CHECKED. RISKS AND BENEFITS EXPLAINED BUT TO NO AVAIL. OFFERED X 3 BUT PATIENT STRONGLY REFUSED. WILL CONTINUE TO MONITOR
[2019-01-16] MEDS: HALOPERIDOL LACTATE 10 MG/5 ML UDC PO SCH ×3 (09:06→17:00)
[2019-01-16] MEDS: LACTOBACILLUS RHAMNOSUS GG 1 EACH CAP.SPRINK PO SCH ×2 (09:06→18:00)
[2019-01-16] MEDS: LINEZOLID 600 MG TABLET PO SCH ×2 (09:06→21:20)
[2019-01-16] MEDS: DAKINS QUARTER STRENGTH (0.125%) 480 ML BOTTLE TOP SCH (09:08)
[2019-01-16] MEDS: ACETAMINOPHEN 325 MG TABLET PO PRN (10:00)
[2019-01-16] MEDS: CLOTRIMAZOLE 1% 15 GM TUBE TP SCH ×2 (11:22→17:00)
[2019-01-16 16:00] VITALS: BP 103/69
--- NOTE | 2019-01-16 18:36 | NUR ---
MS RN NOTES PATIENT RESTING INSIDE ROOM. NO ACUTE DISTRESS. DENIES ANY PAIN OR DISCOMFORT. PATIENT CONTINUE TO NOTE WITH SOME EPISODES OF REFUSING CARE. WOUND CARE DONE IN AM ORDERED AND PATIENT TOLERATED WELL. MAINTAINED ISOLATION PRECAUTIONS. SO CATHETER IN PLACE WITH YELLOW URINE OUTPUT NOTED. WILL ENDORSE TO INCOMING SHIFT FOR ESTRELLITA. BED LOCKED AND IN LOW POSITION. BILATERAL UPPER SIDE RAILS UP AND LOCKED. CALL LIGHT WITHIN EASY REACH
--- NOTE | 2019-01-16 19:20 | NUR ---
MS RN OPENING NOTES Received patient A/O x4, awake on Dennis's position on bed. Bed on high position, patient refused to lower the bed. Siderails x2 up, call light within easy reach. No complaints made at this time. Patient noted verbally abusive to staff. Call light within easy reach. Will continue to monitor accordingly.
--- NOTE | 2019-01-16 23:54 | NUR ---
MS RN NOTES Patient refused repositioning/turning every 2 hours. Reoffered to patient and re-explained the purpose of the intervention, patient is verbally abusive and insisted to decline the intervention. Patient refused to lower his bed. Will continue to monitor accordingly.
--- NOTE | 2019-01-16 23:56 | NUR ---
MS RN NOTES OFFERED WOUND CARE TO PATIENT. PATIENT REFUSED. EDUCATED PATIENT THE PURPOSE OF THE INTERVENTION. PATIENT IS VERBALLY ABUSIVE TO STAFF, INSISTED TO REFUSED THE INTERVENTION.
--- NOTE | 2019-01-17 06:24 | NUR ---
MS RN NOTES Patient intermittently asleep, easily awaken especially if staff are attending the roommate. Patient is verbally abusive and cursing the staff. Refused vital signs, medications, treatment, turning/repositioning, wound care and weekly photo taking. On RA, no SOB/respiratory distress noted. Patient wanted to keep his bed in high position. Kept clean, dry and comfortable. Call light within easy reach. Endorsed to the next shift.
--- NOTE | 2019-01-17 07:47 | NUR ---
MS RN NOTES PATIENT RECEIVED RESTING INSIDE ROOM. AWAKE, ALERT AND ORIENTED. NO ACUTE DISTRESS. DENIES ANY PAIN OR DISCOMFORT. NO CHANGES IN LOC NOTED. SO CATH IN PLACE WITH YELLOW OUTPUT NOTED ON COLLECTING BAG. SAFETY PRECAUTIONS IN PLACE. MAINTAINED ISOLATION PRECAUTION. WILL CONTINUE TO MONITOR. BED LOCKED HAYDER N LOW POSITION. BILATERAL UPPER SIDE RAILS UP AND LOCKED. CALL LIGHT WITHIN EASY REACH
--- NOTE | 2019-01-17 07:54 | NUR ---
MS RN NOTES PATIENT REFUSED AM VITAL SIGNS TO BE CHECKED. RISKS AND BENEFITS EXPLAINED BUT TO NO AVAIL. PATIENT STRONGLY REFUSED. WILL CONTINUE TO MONITOR
[2019-01-17] MEDS: HALOPERIDOL LACTATE 10 MG/5 ML UDC PO SCH ×3 (09:23→17:00)
[2019-01-17] MEDS: LACTOBACILLUS RHAMNOSUS GG 1 EACH CAP.SPRINK PO SCH ×2 (09:23→17:00)
[2019-01-17] MEDS: LINEZOLID 600 MG TABLET PO SCH (09:23)
[2019-01-17] MEDS: DAKINS QUARTER STRENGTH (0.125%) 480 ML BOTTLE TOP SCH (09:24)
[2019-01-17] MEDS: CLOTRIMAZOLE 1% 15 GM TUBE TP SCH ×2 (09:24→17:00)
[2019-01-17] MEDS: ACETAMINOPHEN 325 MG TABLET PO PRN (10:08)
--- NOTE | 2019-01-17 11:15 | NUR ---
MS RN NOTES WOUND TX DONE. PATIENT VERY VERBALLY ABUSIVE, VERBALIZES THAT WOUND TREATMENT IS WRONG AND PREFERS DICTATING HOW WOUND TREATMENT SHOULD BE DONE WHICH IS DIFFERENT FROM WOUND TX ORDERS. RISKS AND BENEFITS EXPLAINED BUT PATIENT WOUND CONTINUE TO BE VERY VERBALLY ABUSIVE. VERBALIZING, "FUCK YOU MAN! YOU DONT KNOW SHIT!". PATIENT TOLERATED WOUND TX WELL. ASSISTED TO SUPINE POSITION. IMPORTANCE OF TURNING AND REPOSITIONING EXPLAINED TO PATIENT BUT PATIENT REFUSED AND CONTINUE TO VERBALLY ABUSE NURSING STAFF. PROVIDED WITH CALM AND SAFE ENVIRONMENT. PATIENT KEPT CLEAN AND DRY. WILL CONTINUE TO MONITOR
[2019-01-17] MEDS: PROSOURCE / PROSTAT (PYXIS) 30 ML UDC GT SCH ×2 (15:00→17:00)
--- NOTE | 2019-01-17 16:15 | NUR ---
MS RN NOTES PATIENT SEEN BY CASE MANAGEMENT. PATIENT VERBALLY ABUSIVE TO ALL STAFF PERSONNEL. ATTEMPTED TO CALM PATIENT BUT PATIENT JUST CONTINUES TO BE VERBALLY ABUSIVE. STATED THAT HE WILL LEAVE HOSPITAL. DR ROMERO MADE AWARE. WILL CONTINUE TO MONITOR.
--- NOTE | 2019-01-17 17:15 | NUR ---
MS RN NOTES PATIENT WANTED TO LEAVE HOSPITAL AGAINST MEDICAL ADVICE. RISKS AND BENEFITS EXPLAINED BUT TO NO AVAIL. PER CASE MANAGEMENT REPORT, PATIENT REFUSES SNF PLACEMENT. DR ROMERO AWARE OF PATIENT WISHES. OFFERED NEW CLOTHING TO PATIENT BUT PATIENT REFUSED AND INSISTED ON WEARING HIS OWN CLOTHING. REFUSED FURTHER WOUND CARE AND MEDICATIONS. RISKS AND BENEFITS EXPLAINED BUT TO NO AVAIL. PATIENT REFUSED TO SIGN PAPERWORKS, WITNESSED BY CHARGE NURSE, CASE MANAGEMENT. PATIENT ASSISTED TO WHEELCHAIR. ALL BELONGINGS COMPLETE, NO REPORT OF MISSING INVENTORY. PATIENT REFUSED TO SIGN INVENTORY LIST WELL. PATIENT LEFT HOSPITAL PREMISES VIA WHEELCHAIR IN STABLE CONDITION. AWARE
== END 2019-01-17 17:10 | disposition left against medical advice (07) | DRG 380 ==
LOC: ER 21:41 → MED 01-06 01:06
PROVIDERS: ADMIT Internal Medicine; ATTEND Internal Medicine
DX: L89.154 Pressure ulcer of sacral region, stage 4 (principal); E43 Unspecified severe protein-calorie malnutrition; F03.90 Unspecified dementia, unspecified severity, without behavioral disturbance, psychotic disturbance, mood disturbance, and anxiety; L89.224 Pressure ulcer of left hip, stage 4; E11.9 Type 2 diabetes mellitus without complications; I10 Essential (primary) hypertension; J45.909 Unspecified asthma, uncomplicated; Z86.73 Personal history of transient ischemic attack (TIA), and cerebral infarction without residual deficits; E87.1 Hypo-osmolality and hyponatremia
CPT/HCPCS: 36415; 71045-TC; 80048-TC; 80053-TC; 80061-TC; 80076-TC; 81000-TC; 83605-TC; 83735-TC; 84100-TC; 84484-TC; 85025-TC; 85730-TC; 87040-TC; 87081-TC; 87086-TC; A4217; A6253; A6403; G0378; J0696; J2543; J3370; J3490; J7030; J7060